=== PATIENT | female | born 1985 | race Caucasian/White ===

== ENCOUNTER 2016-11-10 17:50 | Emergency (ER) | payer MEDICAID, OTHER, SELFPAY ==
[~2016-11-10] VITALS: Ht 165.1 cm; Wt 82.0 kg
[2016-11-10] MEDS ORDERED: CYMB60CA3 PO (18:00)
[2016-11-10] MEDS ORDERED: AZO95TAB PO (18:00)
[2016-11-10] MEDS ORDERED: cefTRIAXone SOD 250 MG VIAL (J0696) IM ONE (18:30)
[2016-11-10] MEDS ORDERED: valACYclovir HCL 500 MG TAB PO ONE (18:30)
[2016-11-10] MEDS ORDERED: AZITHROMYCIN 250 MG TAB PO ONE (18:30)
[2016-11-10] MEDS ORDERED: CIPR-249 PO (18:46)
[2016-11-10] MEDS ORDERED: VALT1TAB PO (18:46)
[2016-11-10] MEDS ORDERED: PYRI1TAB5 PO (18:46)
[2016-11-10 18:53] VITALS: BP 130/83
== END 2016-11-10 18:56 | disposition home or self-care (01) ==
LOC: M ED 17:50
DX: N39.0 Urinary tract infection, site not specified (principal); Z20.2 Contact with and (suspected) exposure to infections with a predominantly sexual mode of transmission
CPT/HCPCS: 81001; 87086; 87252; 87491; 87591; 96372; 99282; J0696

== ENCOUNTER → 2016-12-13 | Outpatient (REF) | payer OTHER ==
[~2016-12-13] MED LIST: AZO95TAB PO; CIPR-249 PO; CYMB60CA3 PO; PYRI1TAB5 PO; VALT1TAB PO
== END ==
LOC: M SFHCPLAZ 13:45
DX: Z76.89 Persons encountering health services in other specified circumstances (principal); Z53.9 Procedure and treatment not carried out, unspecified reason

== ENCOUNTER 2017-02-27 12:23 | Emergency (ER) | payer OTHER ==
[~2017-02-27] VITALS: Ht 165.1 cm; Wt 84.1 kg
--- NOTE | 2017-02-27 14:21 | REP ---
Clinical: pain. Technique: Internal rotation, external rotation, and Y view of the right shoulder. Findings: No acute fracture or dislocation. The acromioclavicular and glenohumeral joints are intact. No periarticular calcifications or degenerative changes are appreciated. Sub acromial space is normal. Surrounding soft tissues are unremarkable. Impression: Normal right shoulder radiographs. Signed by Aamir Romero MD 02/27/2017 02:13 P
[2017-02-27 14:47] VITALS: BP 125/72
== END 2017-02-27 14:47 | disposition home or self-care (01) ==
LOC: M ED 12:23
DX: S43.401A Unspecified sprain of right shoulder joint, initial encounter (principal); X58.XXXA Exposure to other specified factors, initial encounter; Y92.89 Other specified places as the place of occurrence of the external cause; Y93.89 Activity, other specified; Y99.0 Civilian activity done for income or pay; Z79.899 Other long term (current) drug therapy; Z88.5 Allergy status to narcotic agent; Z87.891 Personal history of nicotine dependence

== ENCOUNTER → 2017-04-29 | Outpatient (REF) | payer OTHER ==
[2017-04-29 20:06] LABS: APPEARANCE, URINE MANUAL CLEAR (CLEAR); COLOR, URINE MANUAL ORANGE (YELLOW); GLUCOSE, URINE (UA) MANUAL NEGATIVE (NEGATIVE); PROTEIN, URINE MANUAL OBSCURED mg/dL (NEGATIVE)
[2017-04-29 20:07] LABS: BILIRUBIN, URINE MANUAL OBSCURED (NEGATIVE); BLOOD URINE MANUAL NEGATIVE (NEGATIVE); KETONE, URINE MANUAL NEGATIVE (NEGATIVE); LEUKOCYTE ESTERASE, URINE MAN OBSCURED (NEGATIVE); MICROSCOPIC INDICATED? MAN YES (NO); NITRITE, URINE MANUAL OBSCURED (NEGATIVE); UROBILINOGEN, URINE MANUAL OBSCURED mg/dl (NORMAL)
[2017-04-29 20:40] LABS: BACTERIA, URINE SMALL AMOUNT; CALCIUM OXALATE CRYSTALS,URINE SMALL AMOUNT /hpf; HYALINE CAST, URINE NONE SEEN /lpf (0-1); MICROSCOPIC EXAM PERFORMED; RBC, URINE 0-1 /hpf (0-3); SQUAMOUS EPITHELIAL CELL URINE SMALL AMOUNT /hpf (SMALL AMT)
[2017-04-29 23:39] LABS: CHLAMYDIA DNA AMPLIFICATION NEGATIVE (NEGATIVE); GC DNA AMPLIFICATION NEGATIVE (NEGATIVE)
== END ==
LOC: M SFHCPLAZ 16:34
DX: R30.0 Dysuria (principal)
CPT/HCPCS: 81000

== ENCOUNTER → 2017-05-02 | Outpatient (CLI) | payer OTHER | LOC: M RAD 16:38 | DX: R30.0 Dysuria (principal) | CPT/HCPCS: 74176 ==

== ENCOUNTER → 2017-06-25 | Outpatient (REF) | payer OTHER ==
[2017-06-25 14:00] LABS: INFLUENZA A AMPLIFICATION POSITIVE (NEGATIVE); INFLUENZA B AMPLIFICATION NEGATIVE (NEGATIVE)
== END ==
LOC: M LAB REF 12:59
DX: J11.1 Influenza due to unidentified influenza virus with other respiratory manifestations (principal)
CPT/HCPCS: 87502

== ENCOUNTER → 2018-05-20 | Outpatient (REF) | payer OTHER ==
[2018-05-20 16:20] LABS: BLOOD UREA NITROGEN 7 MG/DL (7-18); CREATININE FOR GFR 0.66 MG/DL (0.55-1.30); GLUCOSE, FASTING 83 MG/DL (70-100)
[2018-05-20 16:21] LABS: CALCIUM LEVEL 8.6 MG/DL (8.5-10.1); CARBON DIOXIDE LEVEL 26 MEQ/L (21-32); CHLORIDE LEVEL 104 MEQ/L (98-107); FOLATE 9.4 NG/ML; GLOMERULAR FILTRATION RATE > 60.0 (>60); POTASSIUM SERUM 4.1 MEQ/L (3.5-5.1); SODIUM LEVEL 138 MEQ/L (136-145)
[2018-05-20 16:22] LABS: BASO # 0.1 10^3/uL (0.0-0.2); BASO % 0.7 % (0.0-1.0); EOS # 0.1 10^3/uL (0.0-0.50); EOS % 1.6 % (0.0-3.0); HEMATOCRIT 43.9 % (36.0-47.0); HEMOGLOBIN 14.7 g/dl (12.0-15.5); LYMPH # 1.7 10^3/uL (1.5-4.5); LYMPH % 25.4 % (24.0-44.0); MEAN CORPUSCULAR HEMOGLOBIN 29.5 pg (27.0-33.0); MEAN CORPUSCULAR HGB CONC 33.5 g/dl (32.0-36.5); MEAN CORPUSCULAR VOLUME 88.2 fl (80.0-96.0); MONO # 0.4 10^3/uL (0.0-0.8); MONO % 6.4 % (0.0-5.0); NEUTROPHILS # 4.4 10^3/uL (1.8-7.7); NEUTROPHILS % 65.5 % (36.0-66.0); PLATELET COUNT, AUTOMATED 235 10^3/uL (150-450); RED BLOOD COUNT 4.98 10^6/uL (4.00-5.40); WHITE BLOOD COUNT 6.7 10^3/uL (4.0-10.0)
[2018-05-20 16:29] LABS: VITAMIN B12 LEVEL 603 PG/ML
== END ==
LOC: M SFHCPLAZ 13:20
DX: R53.83 Other fatigue (principal)

== ENCOUNTER → 2023-08-08 | Outpatient (REF) | payer OTHER ==
[~2023-08-08] MED LIST changes: -CYMB60CA3 PO; +CYMB60CA4 PO
== END ==
LOC: M SFHCPLAZ 17:09
PROVIDERS: ATTEND Student in an Organized Health Care Education/Training Program
DX: J06.9 Acute upper respiratory infection, unspecified (principal)